=== PATIENT | male | born 1995 | race Caucasian/White ===

== ENCOUNTER 2017-10-25 15:56 | Emergency (ER) | payer OTHER ==
[~2017-10-25] VITALS: Ht 172.7 cm; Wt 86.2 kg
[2017-10-25 16:16] VITALS: BP 124/78; Ht 172.7 cm; Wt 86.2 kg
== END 2017-10-25 18:31 | disposition home or self-care (01) ==
LOC: ED 15:56
DX: S56.911A Strain of unspecified muscles, fascia and tendons at forearm level, right arm, initial encounter (principal); X58.XXXA Exposure to other specified factors, initial encounter; Y93.71 Activity, boxing; Y92.89 Other specified places as the place of occurrence of the external cause; Y99.8 Other external cause status